=== PATIENT | female | born 1945 | race Caucasian/White ===

== ENCOUNTER → 2020-08-07 | Outpatient (CLI) | payer OTHER ==
[~2020-08-07] MED LIST: AUGMENTIN 875875 MG PO; FLAGYL500 MG PO; GLUCOTROL5 MG PO; INVOKANA100 MG PO; JANUVIA100 MG PO; MIRALAX255 GM PO; PRINIVIL20 M1 PO; VENLAFAXIN37.5 MG/1 PO
== END ==
LOC: M.RAD 07-31 14:30
PROVIDERS: ATTEND Internal Medicine
DX: M81.0 Age-related osteoporosis without current pathological fracture (principal); Z78.0 Asymptomatic menopausal state; M85.88 Other specified disorders of bone density and structure, other site

== ENCOUNTER → 2021-01-24 | Outpatient (CLI) | payer OTHER | LOC: M.RAD 14:03 | PROVIDERS: ATTEND Internal Medicine | DX: J44.9 Chronic obstructive pulmonary disease, unspecified (principal); R05.8 Other specified cough; T46.4X5A Adverse effect of angiotensin-converting-enzyme inhibitors, initial encounter; Y92.89 Other specified places as the place of occurrence of the external cause ==